=== PATIENT | male | born 1975 | race Asian ===

== ENCOUNTER 2017-06-15 05:31 | Outpatient (CLI) | payer BC, OTHER ==
[~2017-06-15] VITALS: Ht 182.9 cm; Wt 96.6 kg
[2017-06-15 14:03] VITALS: BP 144/85
[2017-06-15] MEDS ORDERED: DICL50TA6 PO (14:14)
[2017-06-15] MEDS ORDERED: TRAM50TA2 PO (14:14)
== END 2017-06-15 14:10 ==
LOC: PREOP 05:31
PROVIDERS: ATTEND Podiatrist Foot Surgery
DX: Z01.818 Encounter for other preprocedural examination (principal); M72.2 Plantar fascial fibromatosis
CPT/HCPCS: 87081

== ENCOUNTER 2017-06-24 06:00 | Day surgery (SDC) | payer BC, OTHER ==
[~2017-06-24] VITALS: Ht 182.9 cm; Wt 96.6 kg
[~2017-06-24 06:00] MED LIST: DICL50TA6 PO; TRAM50TA2 PO
[2017-06-24 06:25] VITALS: BP 126/86
[2017-06-24] MEDS ORDERED: LIDOCAINE PF 2% 5 ML (XYLOCAINE) VIAL ONE (06:30)
[2017-06-24] MEDS ORDERED: ONDANSETRON 4 MG/2 ML (SDV) Z0FRAN ONE (06:30)
[2017-06-24] MEDS ORDERED: proPOfol 200 MG/20 ML (DIPRIVAN) VIAL IV ONE (06:30)
[2017-06-24] MEDS ORDERED: SEVOFLURANE (ULTANE) 15 ML INHAL SOLN ONE (06:30)
[2017-06-24] MEDS ORDERED: LACTATED RINGERS 1,000 ML IV ONE (06:30)
[2017-06-24] MEDS ORDERED: fentaNYL INJECTION 100 MCG/2 ML AMP ONE (06:31)
[2017-06-24] MEDS ORDERED: MIDAZOLAM 2 MG/2 ML (VERSED) VIAL ONE (06:31)
[2017-06-24] MEDS ORDERED: LACTATED RINGERS 1,000 ML IV PRN (06:55)
[2017-06-24] MEDS ORDERED: BUPIVACAINE 0.25% 30 ML (SENSORCAINE) VIAL ONE (07:13)
[2017-06-24] MEDS ORDERED: MEPIVACAINE (CARBOCAINE) 2% 50 ML VIAL ONE (07:13)
[2017-06-24] MEDS ORDERED: DEXAMETHASONE 10 MG/ML (DECADRON) 1 ML VIAL ONE (07:13)
--- NOTE | 2017-06-24 07:23 | Progress Note-Pre Operative ---
Pre-Operative Progress Note H&P Reviewed The H&P was reviewed, patient examined and no changes noted. Date Seen by Provider: Jun 24, 2017 Time Seen by Provider: 07:12 Date H&P Reviewed: Jun 24, 2017 Time H&P Reviewed: 07:12 Pre-Operative Diagnosis: plantar fascigtis left foot XOCHITL DICKERSON DPM Jun 24, 2017 7:23 am
[2017-06-24] MEDS ORDERED: CLINDAMYCIN 600 MG/NS 50 ML IVPB IV ONE ×2 (07:30)
[2017-06-24] MEDS ORDERED: LACTATED RINGERS 1,000 ML IV SCH (07:34)
--- NOTE | 2017-06-24 07:36 | Discharge Instructions ---
Discharge Instructions Discharge Medications New, Converted or Re-Newed RX: RX Given to Pt/Family Patient Instructions Patient Instructions 1. Follow up in office in 2 weeks. 2. Diet as tolerated. 3. Activity as tolerated. Activity & Diet Activity as Tolerated: Yes XOCHITL DICKERSON DPM Jun 24, 2017 7:36 am
[2017-06-24] MEDS ORDERED: ONDANSETRON 4 MG/2 ML (SDV) Z0FRAN IVP PRN (09:00)
[2017-06-24] MEDS ORDERED: morphine INJ 10 MG/ML 1ML (SYR OR VIAL) IVP PRN (09:00)
--- NOTE | 2017-06-24 09:03 | Progress Note-Post Operative ---
Post-Operative Progess Note Surgeon (s)/Director (s) Surgeon XOCHITL DICKERSON DPM Director: none Pre-Operative Diagnosis plantar fascigtis left foot Post-Operative Diagnosis SAME Procedure & Operative Findings Date of Procedure 06/24/17 Procedure Performed/Findings ENDOSCOPIC POLNATAR FASCIOTOMY LEFT FOOT. Anesthesia Type GENERAL WITH INFILTRATION' Estimated Blood Loss Estimated blood loss (mL): MIN Specimens/Packing Specimens Removed NONE XOCHITL DICKERSON DPM Jun 24, 2017 9:03 am
[2017-06-24] MEDS ORDERED: morphine INJ 4 MG/ML 1 ML (VIAL/SYRINGE) ONE (09:22)
[2017-06-24 09:45] VITALS: BP 134/95
[2017-06-24] MEDS: HYDROcodone/APAP 5 MG/325 MG (LORTAB) TAB PO PRN ×2 (10:04→11:10)
[2017-06-24 10:15] VITALS: BP 130/93
--- NOTE | 2017-06-24 10:36 | OPERATIVE REPORT ---
DATE OF SERVICE: 06/24/2017 PREOPERATIVE DIAGNOSIS: Plantar fasciitis left foot. POSTOPERATIVE DIAGNOSIS: Plantar fasciitis left foot. NAME OF OPERATION: Endoscopic plantar fasciotomy left foot. DESCRIPTION OF OPERATION: With the patient in supine position having been affected by general anesthetic, sterile prep and drape were performed and Rony bandage applied above the level of the left ankle. Appropriate measurements were taken at that point, 5 cm incision was made in the medial aspect of the left heel. This was deemed with sharp and blunt dissection. Channeling instrument was placed medial to laterally with the lateral exit wound at the point of exit at the channeling instrument. Cannula and trocar were then introduced into the channel. Medial and lateral margins of the middle strip of the plantar fascia were identified and hook knife was then placed into the endoscope and the middle slip of the plantar fascia was released in toto. This was evidenced on palpation with the foot dorsiflexed to the leg and the toes dorsiflexed on the foot. It was noted at this time there had been complete release of the plantar fascia. The cannula was removed and one horizontal mattress suture was placed medially and laterally to close the incision sites. Tourniquet was released, blood flow returned to his toes, was within normal limits. The area was infiltrated with a 50-50 mixture of 0.5% Marcaine and 1% Carbocaine plain, 1 mL of Decadron was also introduced into the operative site to control postoperative pain and swelling. Adaptic and a wet to dry Betadine dressing was applied, carried above the level of the left ankle, and covered with circular Coban. The patient tolerated the procedure well with minimal blood loss. Left the OR to [facility] appearing in good condition. He is to be seen in the office in 2 weeks for appropriate followup care. Job ID: [id number] DocumentID: [id number] Dictated Date: 06/24/2017 09:18:09 Training Program Developer Date: 06/24/2017 10:36:05 Dictated By: XOCHITL DICKERSON DPM
[2017-06-24 10:45] VITALS: BP 131/86
[2017-06-24 11:45] VITALS: BP 131/86
[2017-06-24 13:38] VITALS: BP 131/86
== END 2017-06-24 13:38 | disposition home or self-care (01) ==
LOC: SDC 06:00
PROVIDERS: ATTEND Podiatrist Foot Surgery
DX: M72.2 Plantar fascial fibromatosis (principal); G57.92 Unspecified mononeuropathy of left lower limb; Z79.899 Other long term (current) drug therapy

== ENCOUNTER → 2018-07-24 | Outpatient (CLI) | payer BC ==
--- NOTE | 2018-07-24 19:10 | Diagnostic Imaging Report ---
INDICATION: Right-sided neck pain. TIME OF EXAM: 7:08 PM FINDINGS: Curvature and alignment is normal. There is lower cervical degenerative disc disease with disc space narrowing and marginal spurring. Prevertebral tissues are within normal limits. Odontoid is intact. No fractures are seen. IMPRESSION: Cervical spondylosis. No acute bony abnormality is detected. Dictated by: Dictated on workstation # [id number]
--- NOTE | 2018-07-24 19:11 | Diagnostic Imaging Report ---
INDICATION: Degenerative disc disease and low back pain. Time of exam: 7:13 PM 3 views of the lumbar spine demonstrate normal curvature and alignment. There are postop changes of anterior lumbar interbody fusion and anterior plate and screws transfixing L5-S1 level. Vertebral body heights are maintained. No acute fracture is seen. There is degenerative disc disease at the L1-2 level with disc space narrowing and marginal spurring. Lower thoracic degenerative disc disease is also seen. IMPRESSION: Degenerative and postsurgical changes. No acute abnormality is detected. Dictated by: Dictated on workstation # [id number]
== END ==
LOC: RAD 18:19
PROVIDERS: ATTEND Family Medicine
DX: M47.812 Spondylosis without myelopathy or radiculopathy, cervical region (principal); M51.36 Other intervertebral disc degeneration, lumbar region; Z98.890 Other specified postprocedural states; Z98.1 Arthrodesis status
CPT/HCPCS: 72040; 72100

== ENCOUNTER → 2019-11-30 | Outpatient (CLI) | payer BC ==
[~2019-11-30] MED LIST changes: -TRAM50TA2 PO; +TRM50T PO
--- NOTE | 2019-11-30 08:40 | Diagnostic Imaging Report ---
PROCEDURE: US Hepatic (Liver). TECHNIQUE: Multiple real-time grayscale images were obtained over the right upper quadrant in various projections. INDICATION: Elevated liver enzymes. FINDINGS: The liver is normal in size at 15.1 cm. No discrete liver mass is identified. The portal vein is patent and shows normal direction of flow. Gallbladder is without stones or sludge. No wall thickening or biliary ductal dilatation is seen. The pancreas is obscured by bowel gas. Right kidney is without calculi or hydronephrosis. There is no ascites. IMPRESSION: Somewhat compromised due to overlying bowel gas. No gross abnormality is detected. Dictated by: Dictated on workstation # [id number]
== END ==
LOC: RAD 06:32
PROVIDERS: ATTEND Family Medicine
DX: R74.8 Abnormal levels of other serum enzymes (principal)
CPT/HCPCS: 76705

== ENCOUNTER → 2021-01-02 | Outpatient (CLI) | payer BC ==
--- NOTE | 2021-01-02 15:14 | Diagnostic Imaging Report ---
PROCEDURE: US left lower extremity venous. TECHNIQUE: Multiple real-time grayscale images were obtained over the left lower extremity in various projections. Additional duplex Doppler and color Doppler images were also obtained. INDICATION: Thigh pain. The left lower extremity deep venous system is widely patent. There is normal color flow, compressibility and waveforms throughout the femoropopliteal system. No superficial thrombus. No mass or fluid collection. IMPRESSION: Normal negative unilateral left lower extreme venous Doppler and ultrasound exam. Dictated by: Dictated on workstation # [id number]
== END ==
LOC: RAD 13:59
PROVIDERS: ATTEND Nurse Practitioner Family
DX: M79.652 Pain in left thigh (principal)